=== PATIENT | female | born 1975 | race Caucasian/White ===

== ENCOUNTER 2018-06-28 09:46 | Outpatient (CLI) | payer OTHER ==
--- NOTE | 2018-06-28 10:50 | ULT ---
RIGHT UPPER QUADRANT ULTRASOUND: HISTORY: Right upper quadrant pain. FINDINGS: Real-time imaging of the right upper quadrant shows multiple echogenic foci with shadowing within the gallbladder consistent with gallstones. The gallbladder wall is not thickened. The common duct is 4 mm. The liver shows a somewhat heterogeneous coarse echotexture. It measures 20.5 cm in length. The right kidney is normal in size and not obstructed. The pancreas is partially obscured. IMPRESSION: 1. Somewhat heterogeneous liver echotexture. The liver appears borderline in size. 2. Multiple cholelithiasis with a normal-caliber common duct. POS: [facility]
== END 2018-06-28 09:47 | disposition home or self-care (01) ==
LOC: BICULT 09:46
PROVIDERS: ATTEND Internal Medicine
DX: R10.9 Unspecified abdominal pain (principal); K21.9 Gastro-esophageal reflux disease without esophagitis; R19.5 Other fecal abnormalities; K80.20 Calculus of gallbladder without cholecystitis without obstruction
CPT/HCPCS: 76705

== ENCOUNTER 2018-07-11 07:21 | Day surgery (SDC) | payer OTHER ==
[2018-07-10 11:08] VITALS: BMI 58.3
[2018-07-11] MEDS ORDERED: Ketamine 50 MG/ML (10ML VIAL) ONE (10:13)
[2018-07-11] MEDS ORDERED: Midazolam HCl 2 mg/2 ml Vial ONE (10:13)
--- NOTE | 2018-07-11 12:36 | OP ---
DATE OF PROCEDURE: 07/11/2018 PROCEDURE PERFORMED: Esophagogastroduodenoscopy with biopsy, colonoscopy with biopsy. INDICATION FOR PROCEDURE: Midepigastric/right upper quadrant abdominal pain, chronic diarrhea. DESCRIPTION OF PROCEDURE: After the risks and benefits of the procedures were explained to the patient including risks of bleeding, infection, perforation, reactions to anesthesia, aspiration, and/or pain, informed consent was obtained. The patient was then taken to the endoscopy suite, where deep sedation was administered via combination of ketamine and propofol due to the patient's large body habitus. Once adequate sedation was achieved, the standard gastroscope was introduced into the mouth with intubation of the esophagus, stomach, and the proximal small intestines with the findings listed below. The patient exhibited a small amount of emesis during this portion of the procedure with oxygen desaturation that responded promptly to removal of the scope and administration of oxygen via Venti mask. Upon stabilization of her oxygenation, the bed was then rotated to 180 degrees in preparation for the colonoscopy. After a digital rectal examination was performed, the standard colonoscope was introduced into the rectum and advanced to the terminal ileum without difficulty. The quality of the prep was good to excellent. The patient tolerated this portion of the procedure well with no immediate perioperative complications. Upon conclusion of the colonoscopy, all equipment was removed from the patient and the patient was transferred to Day Stay in satisfactory condition. EGD FINDINGS: Esophagus: Normal-appearing mucosa was seen in the proximal, mid , and distal esophagus. There was no evidence of erosions, ulcerations, mass, lesions, or active/recent bleeding. However, bile was seen refluxing from the stomach into the distal esophagus concerning for bile acid reflux. Stomach: Limited views were obtained of the stomach due to the patient's oxygen desaturation during the procedure, but the views were adequate. Of the mucosa visualized, normal-appearing mucosa was seen in the gastric cardia, fundus, body , and incisura; however, multiple gastric polyps measuring between 2 to 6 mm in size that were malhotra in coloration were seen in the distal gastric body and the antrum. A biopsy was taken from one of these polyps as a public service representative sample with further biopsies not being obtained due to the patient's oxygen desaturation. Otherwise, there was no evidence of erosions, ulcerations, mass, lesions, or active/recent bleeding. Duodenum: Normal-appearing mucosa was seen in both the duodenal bulb and second portion of the duodenum. There was no evidence of erosions, ulcerations, mass, lesions, or active/recent bleeding. IMPRESSION: 1. Multiple gastric polyps measuring between 3 to 6 mm in size, consistent with fundic gland polyps, status post biopsy to confirm diagnosis. 2. Otherwise, normal upper endoscopy with no etiology for her pain seen during this examination. 3. Acute oxygen desaturation prompting premature termination of this portion of the procedures. COLONOSCOPY FINDINGS: Digital rectal exam, normal. Colon findings: Normal-appearing mucosa was seen in the terminal ileum as well as at the ileocecal valve, appendiceal orifice, and within the cecum itself. A 3 mm polyp was seen in the mid ascending colon and completely removed with biopsy forceps. It was retrieved and placed in a specimen jar for evaluation. Otherwise, normal-appearing mucosa was seen in the distal ascending, transverse, descending , sigmoid colons. Multiple colonic biopsies were taken from these regions for evaluation of possible microscopic colitis. However, within the rectum at approximately 8 to 12 cm past the anal verge, there were multiple linear colonic erosions in a random opal-cross pattern scattered throughout the rectum. These erosions exhibited mild oozing of blood with small petechiae like clots forming above them. Multiple biopsies were taken from these erosions for evaluation. Otherwise, there were no abnormalities seen on rectal retroflexion. IMPRESSION: 1. 3 mm ascending colon polyp, status post biopsy forceps. 2. Multiple linear rectal erosions measuring 2 to 4 cm in length, status post biopsies. 3. No etiology for the patient's abdominal pain seen during this examination. RECOMMENDATIONS: 1. We will follow up on the biopsy results with further management based on the pathology report. 2. Would continue with current regimen for diarrhea including a higher fiber diet. 3. Would have the patient follow up in the GI clinic in 3 weeks for further management of her abdominal pain and diarrhea. Job ID: [id number] [facility]
== END 2018-07-11 15:25 | disposition home or self-care (01) ==
LOC: SDC 07:21
PROVIDERS: ATTEND Internal Medicine
PROC: 0DBK8ZX Excision of Ascending Colon, Via Natural or Artificial Opening Endoscopic, Diagnostic (ICD-10-PCS; principal; 2018-07-11)
PROC: 0DBP8ZX Excision of Rectum, Via Natural or Artificial Opening Endoscopic, Diagnostic (ICD-10-PCS; principal; 2018-07-11)
PROC: 0DB68ZX Excision of Stomach, Via Natural or Artificial Opening Endoscopic, Diagnostic (ICD-10-PCS; principal; 2018-07-11)
DX: D12.2 Benign neoplasm of ascending colon (principal); K29.50 Unspecified chronic gastritis without bleeding; K62.89 Other specified diseases of anus and rectum; K21.9 Gastro-esophageal reflux disease without esophagitis; I10 Essential (primary) hypertension; E11.9 Type 2 diabetes mellitus without complications; F41.9 Anxiety disorder, unspecified; F32.9 Major depressive disorder, single episode, unspecified; G47.30 Sleep apnea, unspecified; G43.909 Migraine, unspecified, not intractable, without status migrainosus; Z90.710 Acquired absence of both cervix and uterus; Z88.6 Allergy status to analgesic agent; Z88.5 Allergy status to narcotic agent; Z88.8 Allergy status to other drugs, medicaments and biological substances; Z88.0 Allergy status to penicillin; Z91.011 Allergy to milk products; Z79.899 Other long term (current) drug therapy; Z98.890 Other specified postprocedural states
CPT/HCPCS: 88305; 88312; J2250

== ENCOUNTER 2018-07-27 12:00 | Outpatient (CLI) | payer OTHER ==
[2018-07-27 15:01] LABS: #Basophils 0.1 thou/uL (0.0-0.2); #Eosinphils 0.4 thou/uL (0.0-0.7); #Lymphocytes 1.6 thou/uL (1.20-3.40); #Monocytes 0.4 thou/uL (0.11-0.59); #Neutrophils 5.6 thou/uL (1.40-6.50); %Basophils 0.7 % (0.0-1.0); %Eosinophils 4.8 % (0.0-10.0); %Lymphocytes 19.5 % (21.0-51.0); %Monocytes 4.6 % (0.0-10.0); %Neutrophils 70.3 % (42.0-75.0); Hemoglobin 12.6 g/dL (12.0-16.0); Mean Corpuscular HGB CONC 31.4 g/dL (32.0-36.0); Mean Corpuscular Hemoglobin 28.3 pg (27.0-31.0); Mean Corpuscular Volume 90.3 fL (78.0-98.0); Mean Platelet Volume 9.7 fL (7.4-10.4); Platelet Count 180 thou/uL (130-400); RBC Distribution Width 14.7 % (11.5-14.5); Red Blood Cell (RBC) Count 4.46 mill/uL (4.20-5.40)
[2018-07-27 15:34] LABS: ALT (SGPT) 10 U/L (8-55); AST (SGOT) 14 U/L (5-34); Albumin 4.1 g/dL (3.5-5.0); Alkaline Phosphatase 85 U/L (40-150); Anion Gap 12 mmol/L (10-20); BUN (Urea Nitrogen) 15 mg/dL (7.0-18.7); Bilirubin, Direct 0.1 mg/dL (0.1-0.3); Bilirubin, Total 0.3 mg/dL (0.2-1.2); Calc. Creatinine Clearance 0 mL/min (70-130); Calcium 9.7 mg/dL (7.8-10.44); Carbon Dioxide 30 mmol/L (22-29); Chloride 102 mmol/L (98-107); Estimated GFR-MDRD Greater than 90; Globulin 3.4 g/dL (2.4-3.5); Glucose 75 mg/dL (70-105); Potassium 3.9 mmol/L (3.5-5.1); Protein, Total 7.5 g/dL (6.0-8.3); Sodium 140 mmol/L (136-145)
== END 2018-07-27 12:01 | disposition home or self-care (01) ==
LOC: LABBT 12:00
PROVIDERS: ATTEND Surgery
DX: Z01.812 Encounter for preprocedural laboratory examination (principal); K80.20 Calculus of gallbladder without cholecystitis without obstruction
CPT/HCPCS: 80053; 80076; 85025

== ENCOUNTER 2018-07-31 08:44 | Inpatient (IN) | payer OTHER ==
[2018-07-27 12:21] VITALS: BMI 61.6
[2018-07-31] MEDS ORDERED: cefOXitin Sodium/Dextrose,Iso 2 GM in Premix Bag 1 BAG IVPB SCH (09:30)
[2018-07-31] MEDS ORDERED: Bupivacaine/Epinephrine 0.25% 30 ML VIAL ONE (09:35)
[2018-07-31] MEDS ORDERED: Fentanyl 100 MCG/2 ML VIAL ONE ×4 (09:43→13:31)
[2018-07-31] MEDS ORDERED: Midazolam HCl 2 mg/2 ml Vial ONE (09:57)
[2018-07-31] MEDS ORDERED: Albuterol Sulfate HFA (OR ONLY) ONE (11:13)
[2018-07-31] MEDS ORDERED: SUGAMMADEX SODIUM 500 MG/5 ML VIAL ONE (11:22)
--- NOTE | 2018-07-31 12:05 | OP ---
DATE OF PROCEDURE: 07/31/2018 PREOPERATIVE DIAGNOSES: Symptomatic cholelithiasis and morbid obesity. PROCEDURE PERFORMED: Laparoscopic cholecystectomy. INDICATIONS: A 43-year-old female, morbidly obese, who has been having episodic right upper quadrant pain radiating to back, associated with nausea, worse after eating. Ultrasound showed cholelithiasis. FINDINGS: She had a massive liver with a very prominent hepatomegaly. The gallbladder was fatty and cystic duct is not dilated. DESCRIPTION OF PROCEDURE: After informed consent was obtained, the patient was taken to the operating room, given general endotracheal anesthesia. She was placed in supine position. Her abdomen was prepped and draped in usual fashion. She had a previous midline incision and ventral hernia repair, so rather than going through the midline, started of with the right lateral abdomen. A 5 mm incision was performed and a Veress needle inserted. Drop test performed. Pneumoperitoneum was started and then the patient developed hypotension suddenly, so this insufflation was stopped and the patient resuscitated. She did fine and moved to a different location and again inserted the Veress needle, attempted insufflation, could not really, because of the weight of her abdominal wall, get any pressure in there, so I elected to advance the laparoscope under direct vision through the 5 mm trocar, entered the abdominal cavity and pneumoperitoneum was created to a pressure of 15 mmHg. Under direct vision, two other 5 mm ports were placed as well as a 12 mm port just in the epigastrium. The gallbladder was grasped and advanced superiorly. There was quite a bit of adipose on the gallbladder. The cystic duct, artery, and critical view were dissected out. Hemoclips were placed on the duct and artery divided and the gallbladder removed from its fossa utilizing electrocautery. The gallbladder was removed from the abdomen through the midline port site, sent to pathology for further analysis. Hemostasis achieved. Trocars and retractors removed after the fascia was closed with 0 Vicryl suture and the GraNee needle in the midline. The skin closed with interrupted 4-0 Rapide. Dermabond applied. The patient tolerated the procedure well, transferred to Recovery in good condition. Job ID: [id number]
[2018-07-31] MEDS ORDERED: PROVENTIL INHALER 6.7 G (200 INHALATIONS) ONE (15:17)
[2018-07-31] MEDS ORDERED: Lidocaine 1% PF 5 ML VIAL ONE (15:17)
[2018-07-31] MEDS ORDERED: ePHEDrine 50 MG/ML VIAL ONE (15:17)
[2018-07-31] MEDS ORDERED: Rocuronium Bromide 10 MG/ML (10ML VIAL) ONE (15:17)
[2018-07-31] MEDS ORDERED: Glycopyrrolate 0.2 MG/ML 5 ML SYRINGE ONE (15:17)
[2018-07-31] MEDS ORDERED: PHENYLEPHRINE-NS 100 MCG/ML 10 ML SYRINGE ONE (15:17)
[2018-07-31] MEDS ORDERED: Ondansetron PF 4 MG/2 ML Vial ONE (15:17)
[2018-07-31] MEDS ORDERED: Dexamethasone 20 MG/5 ML VIAL ONE (15:17)
[2018-07-31] MEDS ORDERED: PROPOFOL 200 MG/20 ML VIAL ONE (15:17)
[2018-07-31] MEDS ORDERED: HYDROcodone/Acetaminophen 5/325 mg Tablet PO PRN ×2 (15:18)
[2018-07-31] MEDS ORDERED: Ondansetron PF 4 MG/2 ML Vial IVP PRN (15:19)
[2018-07-31] MEDS ORDERED: Promethazine 25 MG TAB PO PRN (15:32)
[2018-07-31] MEDS ORDERED: Hydrocodone-Acetamin 15 ML UDCUP PO PRN (17:15)
[2018-07-31] MEDS: traMADol HCl 50 MG TAB PO SCH (19:56)
[2018-08-01] MEDS: Hydrocodone-Acetamin 15 ML UDCUP PO PRN ×4 (01:37→18:02)
[2018-08-01] MEDS: Furosemide 20 MG TAB PO SCH (08:35)
[2018-08-01] MEDS: traMADol HCl 50 MG TAB PO SCH ×3 (08:36→21:32)
[2018-08-01] MEDS: Dicyclomine 20 MG TAB PO SCH (08:38)
--- NOTE | 2018-08-01 09:07 | RAD ---
RADIOGRAPH CHEST 2 VIEWS: Date: 08/01/2018. Time: 8:18 a.m. HISTORY: A 43-year-old female with cough. COMPARISON: 06/14/2018. FINDINGS: Again noted is the dextroscoliosis of the thoracic spine. No cardiomegaly. New finding of blunting of the left lateral costophrenic angle and blunting of the left posterior costophrenic angle. Mild s treaky densities at the bilateral lung bases, left greater than right. New small focus of subsegment al atelectasis in the right upper lobe. No pneumothorax. IMPRESSION: 1. Evidence for new small left pleural effusion. 2. Nonspecific streaky densities in the bilateral lung bases, presumably subsegmental atelectasis. 3. Dextroscoliosis. 4. Recommend continued followup. LISA [] POS: [facility]
[2018-08-01] MEDS: Fluticasone Propionate Nasal Spray 16 gm Bottle NASAL SCH (11:56)
[2018-08-01] MEDS ORDERED: methylPREDNISolone Sod Succ/PF 125 MG/2 ML VIAL IVP SCH (12:15)
[2018-08-01] MEDS: Sodium Chloride 0.45% 1,000 ML IV SCH (13:07)
[2018-08-01] MEDS ORDERED: Sodium Chloride 0.9% 10 ML ONE (13:21)
[2018-08-01] MEDS ORDERED: Montelukast Sodium 10 mg Tablet PO SCH (21:00)
[2018-08-01] MEDS: guaiFENesin ER 600 MG TAB PO SCH (21:31)
--- NOTE | 2018-08-01 22:56 | CON ---
DATE OF CONSULTATION: HISTORY OF PRESENT ILLNESS: Flavia Weiss is a pleasant 43-year-old female who underwent cholecystectomy. She was noted to be hypoxic postoperatively. We were consulted. She says she went to sleep feeling fine, but woke up wheezing. She says she has had asthma since she was a little girl. It does not sound like she is on anything as a preventative drug and just uses albuterol around the house. She tells me she has been told she has chronic obstructive pulmonary disease, but she has never smoked. There is no family history of COPD at a young age. PAST MEDICAL HISTORY: Remarkable for 1. Reflux disease. 2. Allergic rhinitis. 3. Anxiety. 4. Depression. 5. Diabetes. 6. Hypertension. 7. Vascular headaches. 8. Sleep apnea. She is not wearing CPAP. Status post abdominal hysterectomy in 2013. 9. History of a herniorrhaphy, she says 11 different times. 10. History of . 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 She had ProAir. Zoloft 100 mg a day. Zantac, loratadine, lisinopril, and Lasix. ALLERGIES: SHE REPORTS ASPIRIN INTOLERANCE CARBAMAZEPINE, CODEINE, AND PENICILLIN. FAMILY HISTORY: Negative for lung disease in early age. REVIEW OF SYSTEMS: Otherwise negative except for shortness of breath when she moves around. PHYSICAL EXAMINATION: VITAL SIGNS: She is afebrile. Heart rates in 70s, blood pressure 124/60. Large cuff on her wrist. Respiratory rate is 22, oximetry is 94% on 3 L cannula. HEENT: Pupils are equal. Sclerae are anicteric. NECK: Supple. LUNGS: Remarkable for diffuse coarse wheezes. HEART: Regular rhythm. S1 and S2 are normal. ABDOMEN: Soft and nontender. EXTREMITIES: Without clubbing, cyanosis, or edema. IMPRESSION AND PLAN: Chronic persistent asthma with an exacerbation in perioperative period. I have added a dose of steroids today. We will continue nebulized treatments every 4 hours. We will add in Singulair at discharge. She says she had a sleep study done recently, but there is no record in [facility] of a recent sleep study. Without a doubt, she has probably very severe sleep apnea, which probably contributes to chronic hypoxemia with exercise and sleep. surprised if she did not have pulmonary hypertension to go with this. In any event, hopefully within a few days, we can get her feeling well enough to go home. It is a 70 minute consult, 50% of the time was spent in coordinating care. It was noted this evening that the patient was desaturating with exercise, this is not unexpected. We just need to turn up the oxygen when she is exercising. If she is allowed to sit postoperatively, she will never leave the hospital given her life-threatening obesity. Job ID: [id number]
[2018-08-02] MEDS: Hydrocodone-Acetamin 15 ML UDCUP PO PRN ×3 (00:47→09:53)
[2018-08-02] MEDS: Sodium Chloride 0.45% 1,000 ML IV SCH ×2 (00:48→16:20)
--- NOTE | 2018-08-02 09:38 | PRG ---
DATE OF SERVICE: 08/02/2018 SUBJECTIVE: The patient reports that she is still having trouble with her breathing and oxygenation. She says she feels like there is something in her chest that she cannot cough up. She is tolerating a regular diet. She is passing gas. Minimal nausea. OBJECTIVE: VITAL SIGNS: Temperature 98.4, pulse 63, and blood pressure 133/70. She is 95% saturation on 3.5 L of nasal cannula. GENERAL: She is awake and alert. ABDOMEN: Soft and morbidly obese. Incisions are healing well. There is no evidence of infection. : Good urine output. ASSESSMENT: Asthma/sleep apnea with hypoxia. PLAN: Continue current therapy per Pulmonary. When they feel comfortable with discharge, we will let her go home. Job ID: [id number]
[2018-08-02] MEDS: Dicyclomine 20 MG TAB PO SCH (09:48)
[2018-08-02] MEDS: traMADol HCl 50 MG TAB PO SCH ×2 (09:48→15:19)
[2018-08-02] MEDS: Furosemide 20 MG TAB PO SCH (09:49)
[2018-08-02] MEDS: Fluticasone Propionate Nasal Spray 16 gm Bottle NASAL SCH (09:49)
[2018-08-02] MEDS: guaiFENesin ER 600 MG TAB PO SCH (09:49)
[2018-08-02 12:09] VITALS: BP 121/58; TEMP 97.6
--- NOTE | 2018-08-02 16:32 | PRG ---
DATE OF SERVICE: 08/02/2018 SUBJECTIVE: Ms. Weiss is much better today. OBJECTIVE: VITAL SIGNS: Oximetry, sitting in a chair beside the bed this afternoon is 95% on room air. She is afebrile, heart rate 70, respiratory rate 20, and blood pressure 121/58 at noon. LUNGS: Completely clear now. HEART: Regular rhythm. ABDOMEN: Soft. IMPRESSION AND PLAN: 1. Mild asthma exacerbation in the perioperative period after cholecystectomy. 2. Life-threatening obesity. 3. Deconditioning. 4. Sleep apnea, suspect. I have recommended that she follow up with me in 2 weeks. I have given her prescription for prednisone 40 mg for 4 days, 20 mg for 6 days, and 10 mg for 8 days. I have written her prescription for DuoNeb to use 4 times a day. I have placed her on Singulair 10 mg a day. I have asked her to be compliant with the above medications until she sees me in 2 to 3 weeks. My phone number is on the prescription, which will be given to her. I have discussed the above with Dr. Carolina. Her hypoxemia is resolved, which is secondary to a combination of asthma, mucus plugging in perioperative atelectasis. I doubt she has had a thromboembolic event given her exam findings of bronchospasm, long history of asthma, and dramatic improvement with steroids and nebulizer treatments. Job ID: [id number]
--- NOTE | 2018-08-02 23:48 | DIS ---
DATE OF ADMISSION: 08/02/2018 DATE OF DISCHARGE: 08/02/2018 DISCHARGE DIAGNOSES: Symptomatic cholelithiasis, morbid obesity, asthma, probable sleep apnea. PROCEDURES DURING ADMISSION: Laparoscopic cholecystectomy. HOSPITAL COURSE: The patient was admitted, taken to the operating room where she underwent laparoscopic cholecystectomy. Postoperatively, she had quite a bit of bronchospasm, required admission. Sats remained somewhat low. Chest x-ray showed some atelectasis. Pulmonary was consulted, felt it was sleep apnea and asthma. She was treated with steroids and bronchodilators. She is no longer hypoxic. She is tolerating a regular diet. Pain is controlled on p.o. medications. She is discharged home on hydrocodone and Zofran. She will follow up with me in 2 weeks. Job ID: [id number]
== END 2018-08-02 19:10 | disposition home or self-care (01) | DRG 418 ==
LOC: SDC 08:44 → 3SW 13:45 → OBSVTOIN 08-02 09:07
PROVIDERS: ADMIT Surgery; ATTEND Surgery
PROC: 0FT44ZZ Resection of Gallbladder, Percutaneous Endoscopic Approach (ICD-10-PCS; principal; 2018-07-31)
DX: K80.20 Calculus of gallbladder without cholecystitis without obstruction (principal); J45.901 Unspecified asthma with (acute) exacerbation; J98.11 Atelectasis; Z68.44 Body mass index [BMI] 60.0-69.9, adult; E66.01 Morbid (severe) obesity due to excess calories; G47.30 Sleep apnea, unspecified; R53.81 Other malaise
CPT/HCPCS: 71046; 88304; 94640; J0131; J1100; J2001; J2250; J2405; J2704; J2930; J3010; J3490; J7620

== ENCOUNTER 2018-08-05 21:42 | Emergency (ER) | payer OTHER ==
[2018-08-05 22:57] LABS: #Basophils 0.1 thou/uL (0.0-0.2); #Eosinphils 0.1 thou/uL (0.0-0.7); #Lymphocytes 0.8 thou/uL (1.20-3.40); #Monocytes 0.3 thou/uL (0.11-0.59); #Neutrophils 11.8 thou/uL (1.40-6.50); %Basophils 0.9 % (0.0-1.0); %Eosinophils 0.4 % (0.0-10.0); %Lymphocytes 6.4 % (21.0-51.0); %Monocytes 2.5 % (0.0-10.0); %Neutrophils 89.9 % (42.0-75.0); Hemoglobin 12.2 g/dL (12.0-16.0); Mean Corpuscular HGB CONC 30.7 g/dL (32.0-36.0); Mean Corpuscular Hemoglobin 27.1 pg (27.0-31.0); Mean Corpuscular Volume 88.2 fL (78.0-98.0); Mean Platelet Volume 9.7 fL (7.4-10.4); Platelet Count 215 thou/uL (130-400); RBC Distribution Width 14.6 % (11.5-14.5); Red Blood Cell (RBC) Count 4.51 mill/uL (4.20-5.40); White Blood Cell (WBC) Count 13.1 thou/uL (4.8-10.8)
[2018-08-05 23:03] LABS: Bilirubin Negative (Negative); Blood, Urine Negative (Negative); Clarity CLEAR (Clear); Glucose, Urine (Dipstick) Negative (Negative); Leukocyte Negative (Negative); Nitrite Negative (Negative); Protein, Urine (Dipstick) Negative (Neg-Trace); Specific Gravity, Urine 1.018 (1.002-1.036); Urobilinogen 0.2 mg/dL (0.2-1.0); pH, Urine 5.5 (5.0-9.0)
[2018-08-05 23:21] LABS: ALT (SGPT) 41 U/L (8-55); AST (SGOT) 20 U/L (5-34); Albumin 3.9 g/dL (3.5-5.0); Alkaline Phosphatase 87 U/L (40-150); Anion Gap 15 mmol/L (10-20); BUN (Urea Nitrogen) 21 mg/dL (7.0-18.7); Bilirubin, Total Less than 0.2 mg/dL (0.2-1.2); Calc. Creatinine Clearance 0 mL/min (70-130); Calcium 9.3 mg/dL (7.8-10.44); Carbon Dioxide 29 mmol/L (22-29); Chloride 100 mmol/L (98-107); Estimated GFR-MDRD 79; Globulin 3.1 g/dL (2.4-3.5); Glucose 157 mg/dL (70-105); Lipase 24 U/L (8-78); Potassium 4.7 mmol/L (3.5-5.1); Sodium 139 mmol/L (136-145)
[2018-08-05 23:23] LABS: Pregnancy Test - Urine (BHCG) Negative (Negative); Pregu Control Background? CLEAR/WHITE (CLR/WHITE); Pregu Control Bar Appear? YES (CONTROL BAR); Specific Gravity 1.018 (1.002-1.036)
--- NOTE | 2018-08-05 23:39 | RAD ---
CHEST TWO VIEWS: 08/05/18 INDICATION: Cough. COMPARISON: Prior exam dated 08/01/18. FINDINGS: No consolidation, pleural effusion or pneumothorax is evident. Scoliosis is stable. Heart size is wit hin normal limits. No acute osseous abnormality is evident. IMPRESSION: No acute abnormality. POS: [facility]
[2018-08-06] MEDS ORDERED: Morphine 4 MG/ML VIAL ONE (03:26)
[2018-08-06] MEDS ORDERED: Ondansetron PF 4 MG/2 ML Vial ONE (04:56)
--- NOTE | 2018-08-06 08:47 | CT ---
FINAL REPORT EMERGENT AFTER HOURS CTA OF THE CHEST WITH CONTRAST: COMPARISON: None. TECHNIQUE: Multiple contiguous axial images were obtained in a CTA of the chest with contrast per pulmonary embo lism protocol. Three-D oblique MIP reformats and direct coronal reformats were performed. FINDINGS/IMPRESSION: I agree with the findings and impression given in the preliminary report per [facility] physician. No eric dence of pulmonary thromboembolism. POS: [facility]
--- NOTE | 2018-08-06 11:25 | CT ---
PRELIMINARY REPORT/[facility]/EMERGENCY AFTER HOURS PROCEDURE: EXAM: CT Abdomen and Pelvis With Contrast EXAM DATE/TIME: 08/06/2018 4:03 AM CLINICAL HISTORY: 43 years old, female; Pain; Abdominal pain; Generalized; Prior surgery; Patient HX: Er 4; F41 present s ed for abd pain. PT reports complaint began last night and got worse today. PT reports pain happens everytime she eats with sweating and chills. PT reports she was discharged on the august 02 for cholecystectomy on the . PT reports pain originates in middle of abd and moving to suprapu bic region then ruq. PT reports HX of 11 hernias with surgery for them in 2014. Surgical history of h ysterectomy, ileostomy, umbilical hernia with mesh, appendectomy, cholecystectomy. TECHNIQUE: Axial computed tomography images of the abdomen and pelvis with intravenous contrast. Coronal reforma tted images were created and reviewed. COMPARISON: No relevant prior studies available. FINDINGS: Lower thorax: There is linear atelectasis at LEFT lung base. ABDOMEN: Liver: There is focal hypoattenuation within the inferior tip of the RIGHT liver which cannot be furt her characterized on current exam but probably represents a benign cyst. May consider further evaluat ion in high risk patients. Gallbladder and bile ducts: There has been a cholecystectomy. Pancreas: The pancreas appears normal. No ductal dilatation. Spleen: The spleen is normal. Adrenals: The adrenal glands are normal. Kidneys and ureters: The kidneys appear normal. No hydronephrosis. Stomach and bowel: The stomach is normal. The duodenum is unremarkable. The colon is normal. Appendix: No evidence of appendicitis. PELVIS: Bladder: The bladder is normal. Reproductive: The uterus is present although may be partially absent. ABDOMEN and PELVIS: Intraperitoneal space: Normal. No free air. No significant fluid collection. Bones/joints: No acute fracture. No dislocation. Soft tissues: Patient is post ventral abdominal surgery with surgical mesh demonstrated in the pelvis . Vasculature: Normal. No abdominal aortic aneurysm. Lymph nodes: Normal. No enlarged lymph nodes. IMPRESSION: No acute abdominal pelvic pathology. Abdominal surgical changes as above. Thank you for allowing us to participate in the care of your patient. Dictated and Authenticated by: Rui Lopez MD 08/06/2018 4:31 AM Central Time ([place] & [place]) FINAL REPORT EMERGENT AFTER HOURS CT OF THE ABDOMEN AND PELVIS WITH CONTRAST: COMPARISON: 06/07/2018. FINDINGS/IMPRESSION: I agree with the findings and impression given in the preliminary report per [facility] physician. No eric dence of acute intraabdominal/pelvic abnormality. POS: [facility]
[2018-08-06] MEDS ORDERED: ISOVUE-370 76%-LOCM 1 ML ONE (13:09)
== END 2018-08-06 05:22 | disposition home or self-care (01) ==
LOC: ERS 21:42
DX: G89.18 Other acute postprocedural pain (principal); R10.33 Periumbilical pain; E11.9 Type 2 diabetes mellitus without complications; I10 Essential (primary) hypertension; E66.9 Obesity, unspecified; J45.909 Unspecified asthma, uncomplicated; F31.9 Bipolar disorder, unspecified; Z79.899 Other long term (current) drug therapy; Z79.51 Long term (current) use of inhaled steroids
CPT/HCPCS: 36415; 71046; 71275; 74177; 80053; 81003; 81025; 83690; 84484; 85025; 85379; 93005; 96361; 96374; 96375; J2270; J2405; Q9966

== ENCOUNTER 2018-08-16 11:04 | Outpatient (CLI) | payer OTHER ==
--- NOTE | 2018-08-16 11:40 | RAD ---
TWO VIEW CHEST: Indication: Dyspnea. FINDINGS: There is dextroscoliosis with elevation of the right hemidiaphragm. Cardiac silhouette is accentuated . No lobar consolidation, significant effusion or discrete pneumothorax. IMPRESSION: No focal consolidation. POS: [facility]
== END 2018-08-16 11:05 | disposition home or self-care (01) ==
LOC: RAD 11:04
PROVIDERS: ATTEND Internal Medicine Critical Care Medicine
DX: R06.00 Dyspnea, unspecified (principal)
CPT/HCPCS: 71046

== ENCOUNTER 2018-08-23 11:14 | Outpatient (CLI) | payer OTHER ==
--- NOTE | 2018-08-23 11:33 | ULT ---
FUltrasound abdomen limited: (Right upper quadrant) 08/23/2018 HISTORY: 43-year-old female with right upper quadrant abdominal pain. FINDINGS: Hepatic echogenicity within normal limits. At least mild hepatomegaly. No hydronephrosis of right kidney. Common duct caliber 3 or 4 mm. Pancreas: Nonspecific sonographic appearance. Gallbladder: Surgically absent. IMPRESSION: 1. Hepatomegaly. 2. Status post cholecystectomy.
== END 2018-08-23 11:15 | disposition home or self-care (01) ==
LOC: SCSULT 11:14
PROVIDERS: ATTEND Surgery
DX: R10.11 Right upper quadrant pain (principal); R16.0 Hepatomegaly, not elsewhere classified; Z90.49 Acquired absence of other specified parts of digestive tract
CPT/HCPCS: 76705

== ENCOUNTER 2018-09-11 19:30 | Outpatient (CLI) | payer OTHER | END 2018-09-11 19:31 | disposition home or self-care (01) | LOC: SLEEPLAB 19:30 | PROVIDERS: ATTEND Internal Medicine Critical Care Medicine | DX: G47.33 Obstructive sleep apnea (adult) (pediatric) (principal); G47.00 Insomnia, unspecified; G47.10 Hypersomnia, unspecified; J45.909 Unspecified asthma, uncomplicated; R06.83 Snoring; I10 Essential (primary) hypertension; E66.9 Obesity, unspecified; Z68.44 Body mass index [BMI] 60.0-69.9, adult | CPT/HCPCS: 95811 ==

== ENCOUNTER 2018-10-04 09:55 | Outpatient (CLI) | payer OTHER ==
--- NOTE | 2018-10-04 11:08 | RAD ---
CHEST TWO VIEWS: 10/04/2018 PROVIDED CLINICAL HISTORY: Dyspnea. COMPARISON: 09/15/2018 FINDINGS: Evaluation is limited by patient body habitus. Right convexity curvature of the thoracic spine is re demonstrated. The cardiac and mediastinal silhouette is unchanged in appearance. No focal consolida tion, pleural fluid, or pneumothorax is apparent. IMPRESSION: No evidence for an acute cardiopulmonary process. POS: [facility]
== END 2018-10-04 09:56 | disposition home or self-care (01) ==
LOC: RAD 09:55
PROVIDERS: ATTEND Internal Medicine Critical Care Medicine
DX: R06.00 Dyspnea, unspecified (principal)
CPT/HCPCS: 71046

== ENCOUNTER 2018-10-18 13:06 | Outpatient (CLI) | payer OTHER | END 2018-10-18 13:07 | disposition home or self-care (01) | LOC: DTY/OP 13:06 | PROVIDERS: ATTEND Surgery | DX: E66.01 Morbid (severe) obesity due to excess calories (principal) | CPT/HCPCS: 97802 ==

== ENCOUNTER 2018-12-07 17:34 | Emergency (ER) | payer OTHER ==
[2018-12-07] MEDS ORDERED: Morphine 4 MG/ML VIAL ONE (18:15)
--- NOTE | 2018-12-07 19:00 | RAD ---
SINGLE VIEW OF THE PELVIS: 12/07/18 COMPARISON: None. HISTORY: Left sided pain and right hip pain. Trauma. FINDINGS: Single view of the pelvis shows no evidence of acute fracture or dislocation. No degenerative changes are seen in either hip. Multiple laparoscopic isai are seen in the left inguinal region. IMPRESSION: No evidence of acute osseous abnormality. POS: [facility]
[2018-12-07] MEDS ORDERED: Ketorolac Tromethamine 30 MG/ML VIAL ONE (19:02)
[2018-12-07] MEDS ORDERED: Ondansetron PF 4 MG/2 ML Vial ONE (19:02)
--- NOTE | 2018-12-07 19:09 | CT ---
CT OF THE BRAIN WITHOUT CONTRAST: 12/07/18 COMPARISON: 09/15/18. HISTORY: Headache. TECHNIQUE: Multiple contiguous axial images were obtained in a CT of the brain without contrast. FINDINGS: The brain is normal in morphology and attenuation without focal lesions or confluent areas of infarct ion. There is no evidence of hydrocephalus, intracranial hemorrhage or extra-axial fluid collection. The calvarium and overlying soft tissues are unremarkable. The visualized paranasal sinuses and mast oid air cells are well aerated. IMPRESSION: No evidence of acute intracranial abnormality. POS: C
--- NOTE | 2018-12-07 19:12 | CT ---
CT OF THE CERVICAL SPINE WITHOUT CONTRAST: 12/07/18 COMPARISON: None. HISTORY: Headache and neck pain after tripping on a wire doing yard work. TECHNIQUE: Multiple contiguous axial images were obtained in a CT of the cervical spine without contrast. Sagi ttal and coronal reformats were performed. FINDINGS: The vertebral bodies and intervertebral discs demonstrate normal height and alignment without fractur e or subluxation. No degenerative changes are seen. No prevertebral soft tissue swelling is seen. The posterior facets are well aligned. Normal alignment of the skull base with the cervical spine is seen. Please note that this exam is limited secondary to streak artifact from the patient's large size. IMPRESSION: No evidence of acute osseous abnormality of the cervical spine. POS: C
--- NOTE | 2018-12-07 19:16 | CT ---
CT LUMBAR SPINE WITH CORONAL AND SAGITTAL REFORMATIONS AND NO IV CONTRAST: 12/07/18 HISTORY: Trauma, back pain. FINDINGS: Multilevel degenerative changes are present. No acute fracture or subluxation is identified. There ar e bilateral pars articularis defects at L5 level. There is vacuum disc phenomenon at L1-2 level. IMPRESSION: No CT evidence of fracture or traumatic subluxation. POS: [facility]
== END 2018-12-07 20:10 | disposition home or self-care (01) ==
LOC: ERS 17:34
DX: M54.5 Low back pain (principal); M54.2 Cervicalgia; R51 Headache; M25.512 Pain in left shoulder; M25.551 Pain in right hip; E11.9 Type 2 diabetes mellitus without complications; I10 Essential (primary) hypertension; E66.9 Obesity, unspecified; J45.909 Unspecified asthma, uncomplicated; G47.30 Sleep apnea, unspecified; F31.9 Bipolar disorder, unspecified; Z79.899 Other long term (current) drug therapy; Z79.51 Long term (current) use of inhaled steroids; W18.30XA Fall on same level, unspecified, initial encounter
CPT/HCPCS: 70450; 72125; 72131; 72170; 96374; 96375; J1885; J2270; J2405

== ENCOUNTER 2019-01-14 16:14 | Emergency (ER) | payer OTHER ==
[2019-01-14] MEDS ORDERED: Lidocaine Viscous Sol 2% 15 ml UD Cup ONE (16:51)
== END 2019-01-14 17:45 | disposition home or self-care (01) ==
LOC: ERS 16:14
DX: T16.2XXA Foreign body in left ear, initial encounter (principal); H60.92 Unspecified otitis externa, left ear; I10 Essential (primary) hypertension; J45.909 Unspecified asthma, uncomplicated; F41.9 Anxiety disorder, unspecified; F32.9 Major depressive disorder, single episode, unspecified; Z79.899 Other long term (current) drug therapy; Z79.51 Long term (current) use of inhaled steroids
CPT/HCPCS: 99282

== ENCOUNTER 2019-02-06 13:27 | Outpatient (CLI) | payer OTHER ==
--- NOTE | 2019-02-06 14:25 | MMO ---
Bilateral MAMMO Bilat Screen DDI. CLINICAL HISTORY: Patient is 43 years old and is seen for screening. The patient has the following family history of breast cancer: mother, at age 32, malignant (generic), ovarian and paternal grandmother, malignant (generic). The patient has a history of cervical cancer at age 24. VIEWS: The views performed were: bilateral craniocaudal and bilateral mediolateral oblique. This study has been interpreted with the assistance of computer-aided detection. MAMMOGRAM FINDINGS: There are scattered fibroglandular densities. There are benign appearing calcifications seen in both breasts. There are no suspicious masses, suspicious calcifications, or new areas of architectural distortion. IMPRESSION: THERE IS NO MAMMOGRAPHIC EVIDENCE OF MALIGNANCY. A ROUTINE FOLLOW-UP MAMMOGRAM IN 1 YEAR IS RECOMMENDED. ACR BI-RADS Category 2 - Benign finding MAMMOGRAPHY NOTE: 1. A negative mammogram report should not delay a biopsy if a dominant of clinically suspicious mass is present. 2. Approximately 10% to 15% of breast cancers are not detected by mammography. 3. Adenosis and dense breasts may obscure an underlying neoplasm. Reported by: CARIDAD RIGGS MD Electonically Signed: [id number]
== END 2019-02-06 13:28 | disposition home or self-care (01) ==
LOC: BICMAMMO 13:27
PROVIDERS: ATTEND Family Medicine
DX: Z12.31 Encounter for screening mammogram for malignant neoplasm of breast (principal); Z85.41 Personal history of malignant neoplasm of cervix uteri; Z80.3 Family history of malignant neoplasm of breast; Z80.41 Family history of malignant neoplasm of ovary
CPT/HCPCS: 77067

== ENCOUNTER 2019-05-28 05:59 | Outpatient (CLI) | payer OTHER ==
--- NOTE | 2019-05-28 13:49 | RAD ---
PA AND LATERAL VIEWS CHEST: HISTORY: Preoperative evaluation. FINDINGS: Comparison is made with the exam of 03/21/2019. The heart size is borderline but stable. The lungs are expanded without focal areas of consolidation , pneumothoraces, or pleural effusions. There is scoliosis of the spine. IMPRESSION: No radiographic evidence of acute cardiopulmonary process. POS: [facility]
[2019-05-28 14:08] LABS: #Eosinphils 0.2 thou/uL (0.0-0.7); #Lymphocytes 1.4 thou/uL (1.20-3.40); #Monocytes 0.4 thou/uL (0.11-0.59); #Neutrophils 6.5 thou/uL (1.40-6.50); %Basophils 0.4 % (0.0-1.0); %Eosinophils 2.6 % (0.0-10.0); %Lymphocytes 16.1 % (21.0-51.0); Mean Corpuscular HGB CONC 32.5 g/dL (32.0-36.0); Mean Corpuscular Hemoglobin 28.7 pg (27.0-31.0); Mean Corpuscular Volume 88.4 fL (78.0-98.0); Mean Platelet Volume 9.7 fL (7.4-10.4); Platelet Count 190 thou/uL (130-400); RBC Distribution Width 13.3 % (11.5-14.5); Red Blood Cell (RBC) Count 4.87 mill/uL (4.20-5.40); White Blood Cell (WBC) Count 8.5 thou/uL (4.8-10.8)
[2019-05-28 14:16] LABS: Hemoglobin A1c 5.5 % (4.0-6.0)
[2019-05-28 14:35] LABS: ALT (SGPT) 26 U/L (8-55); AST (SGOT) 24 U/L (5-34); Albumin 4.3 g/dL (3.5-5.0); Alkaline Phosphatase 92 U/L (40-110); Anion Gap 15 mmol/L (10-20); BUN (Urea Nitrogen) 23 mg/dL (7.0-18.7); Bilirubin, Total Less than 0.2 mg/dL (0.2-1.2); Calc. Creatinine Clearance 0 mL/min (70-130); Calcium 9.6 mg/dL (7.8-10.44); Carbon Dioxide 28 mmol/L (22-29); Chloride 103 mmol/L (98-107); Estimated GFR-MDRD Greater than 90; Globulin 3.4 g/dL (2.4-3.5); Glucose 106 mg/dL (70-105); Potassium 3.7 mmol/L (3.5-5.1); Protein, Total 7.7 g/dL (6.0-8.3); Sodium 142 mmol/L (136-145)
--- NOTE | 2019-05-28 17:12 | EKG ---
Test Reason : Blood Pressure : / mmHG Vent. Rate : 064 BPM Atrial Rate : 064 BPM P-R Int : 154 ms QRS Dur : 088 ms QT Int : 420 ms P-R-T Axes : 036 071 -11 degrees QTc Int : 433 ms Normal sinus rhythm Nonspecific ST-T changes cannot R/O ant/septal infarct Abnormal ECG When compared with ECG of 06-AUG-2018 00:39, Nonspecific T wave abnormality now evident in Anterolateral leads Confirmed by DR. Sienna GAMBOA (3) on 05/28/2019 5:12:07 PM Referred By: JJ Confirmed By:DR. Sienna GAMBOA
== END 2019-05-28 06:00 | disposition home or self-care (01) ==
LOC: LABBT 05:59
PROVIDERS: ATTEND Surgery
DX: Z01.818 Encounter for other preprocedural examination (principal); E66.01 Morbid (severe) obesity due to excess calories
CPT/HCPCS: 71046; 80053; 83036; 85025; 93005; 93010

== ENCOUNTER 2019-05-28 13:15 | Inpatient (IN) | payer OTHER ==
[2019-06-04] MEDS ORDERED: Fentanyl 100 MCG/2 ML VIAL ONE ×3 (08:45→12:40)
[2019-06-04] MEDS ORDERED: Bupivacaine 0.25% HCL 30 ML VIAL ONE ×2 (08:59→09:00)
[2019-06-04] MEDS ORDERED: Lidocaine 1% w/Epinephrine 1:100K 20 ML VIAL ONE ×2 (08:59→09:00)
[2019-06-04] MEDS ORDERED: Heparin 5,000 UNITS/ML VIAL ONE (09:08)
[2019-06-04] MEDS ORDERED: Scopolamine 1.5 mg/72 hour Patch ONE (09:08)
[2019-06-04] MEDS ORDERED: Levofloxacin 500 mg/D5W 100 ml Premix Bag ONE (09:08)
[2019-06-04] MEDS ORDERED: Glycopyrrolate 0.2 MG/ML 5 ML SYRINGE ONE (10:14)
[2019-06-04] MEDS ORDERED: diphenhydrAMINE 50 MG/ML VIAL ONE (10:14)
[2019-06-04] MEDS ORDERED: Rocuronium Bromide 10 MG/ML (10ML VIAL) ONE (10:14)
[2019-06-04] MEDS ORDERED: PROPOFOL 200 MG/20 ML VIAL ONE (10:14)
[2019-06-04] MEDS ORDERED: Ondansetron PF 4 MG/2 ML Vial ONE (10:14)
[2019-06-04] MEDS ORDERED: Dexamethasone 20 MG/5 ML VIAL ONE (10:14)
[2019-06-04] MEDS ORDERED: Succinylcholine Chloride 20 MG/ML 10 ml SYRINGE FS ONE (10:14)
[2019-06-04] MEDS ORDERED: Promethazine HCl 25 MG/ML VIAL IM PRN (11:01)
[2019-06-04] MEDS ORDERED: Dextrose 5% in Water 1,000 ML IV PRN (11:01)
[2019-06-04] MEDS ORDERED: hydrALAZINE 20 MG/ML VIAL SLOW IVP PRN (11:01)
[2019-06-04] MEDS ORDERED: Dextrose 50% Abboject 50 ML SYRINGE SLOW IVP PRN (11:01)
[2019-06-04] MEDS ORDERED: diphenhydrAMINE 50 MG/ML VIAL IVP PRN ×2 (11:01→11:30)
[2019-06-04] MEDS ORDERED: SUGAMMADEX SODIUM 200 MG/2 ML VIAL ONE (11:10)
[2019-06-04] MEDS ORDERED: Ketorolac Tromethamine 30 MG/ML VIAL ONE (11:27)
[2019-06-04] MEDS ORDERED: diphenhydrAMINE 25 MG CAP PO PRN (11:30)
[2019-06-04] MEDS ORDERED: diphenhydrAMINE 50 MG/ML VIAL IM PRN (11:30)
[2019-06-04] MEDS ORDERED: Meperidine HCl/PF 25 MG/ML VIAL SLOW IVP PRN (11:30)
[2019-06-04] MEDS ORDERED: Communication Order-Pharmacy FS PRN (11:30)
[2019-06-04] MEDS ORDERED: fentaNYL Citrate/PF 2,000 MCG in Sodium Chloride 0.9% 60 ML IV PRN (11:30)
[2019-06-04] MEDS ORDERED: Ondansetron HCl/PF 4 MG/2 ML Vial IVP PRN (11:30)
[2019-06-04] MEDS ORDERED: Naloxone HCl 0.4 mg/ml Vial IV PRN (11:30)
[2019-06-04] MEDS ORDERED: Ketorolac Tromethamine 30 MG/ML VIAL IVP PRN (11:30)
[2019-06-04] MEDS ORDERED: Promethazine HCl 25 MG/ML VIAL ONE (12:12)
[2019-06-04] MEDS ORDERED: D5 1/2 NS w/20 mEq KCL 1,000 ML ONE (13:38)
[2019-06-04 14:58] VITALS: BMI 68.2
[2019-06-04] MEDS: Ketorolac Tromethamine 30 MG/ML VIAL IVP SCH ×3 (15:01→23:56)
[2019-06-04] MEDS: Ondansetron PF 4 MG/2 ML Vial IVP PRN (15:17)
--- NOTE | 2019-06-04 15:17 | OP ---
DATE OF PROCEDURE: 06/04/2019 PREOPERATIVE DIAGNOSIS: Morbid obesity. PROCEDURE PERFORMED: Laparoscopic sleeve gastrectomy, esophagogastroscopy. INDICATIONS: A 44-year-old female, morbidly obese, who has attempted multiple weight loss programs without success. FINDINGS: A 38-Gabonese bougie used. DESCRIPTION OF PROCEDURE: After informed consent was obtained, the patient was taken to the operating room and given general endotracheal anesthesia. She was placed in the supine position. Her abdomen was prepped and draped in usual fashion. Local anesthesia was infiltrated subcutaneously and deep and a 12-mm incision was performed approximately 8 inches below the xiphoid slightly to the left. Veress needle was inserted. Drop test was performed. Pneumoperitoneum was created to a volume of 2 L of carbon dioxide. Utilizing a bladeless 12-mm trocar and 0-degree laparoscope, direct visual entry into the abdominal cavity was performed. Pneumoperitoneum was created to a pressure of 15 mmHg and the patient placed in steep reverse Trendelenburg position. Ariel liver retractor inserted. Left lobe of liver retracted superiorly. The pylorus was identified. A 12-mm port placed on the right beneath it and two 12s were placed on the left subcostal. The omentum was taken off the greater curvature 5 cm from the pylorus utilizing the LigaSure. Short gastrics were divided with LigaSure and left crura defined with LigaSure. A 38-Gabonese bougie inserted, directed into the antrum. The linear 60 mm green load stapler used to divide the antrum to the bougie, gold load along the bougie, and a series of blues through the angle of His. Intraoperative endoscopy was performed. The video endoscope was inserted under direct vision and advanced into the sleeve. The staple line inspected. There was no bleeding. Staple line then tested by inflating the new stomach with pressurized air under water. There was no air leak. Stomach was decompressed. Scope was removed. The remnant stomach was removed from the abdomen through the left lateral port site. The fascia was closed with 0 Vicryl suture and the GraNee needle. Trocars and retractors removed. The skin was closed with interrupted 4-0 Rapide. Dermabond applied. The patient tolerated the procedure well, transferred to Recovery in good condition. Sponge and needle count verified correct x2. Job ID: [id number]
[2019-06-04] MEDS: D5 1/2 NS w/20 mEq KCL 1,000 ML IV SCH ×2 (15:21→21:13)
[2019-06-05] MEDS: D5 1/2 NS w/20 mEq KCL 1,000 ML IV SCH ×3 (03:38→20:19)
[2019-06-05] MEDS: Ketorolac Tromethamine 30 MG/ML VIAL IVP SCH ×3 (05:16→19:07)
[2019-06-05 05:18] LABS: #Lymphocytes 0.5 thou/uL (1.20-3.40); #Monocytes 0.4 thou/uL (0.11-0.59); #Neutrophils 6.7 thou/uL (1.40-6.50); %Basophils 0.5 % (0.0-1.0); %Eosinophils 0.1 % (0.0-10.0); %Lymphocytes 7.1 % (21.0-51.0); %Monocytes 5.7 % (0.0-10.0); %Neutrophils 86.7 % (42.0-75.0); Hemoglobin 12.3 g/dL (12.0-16.0); Mean Corpuscular Hemoglobin 29.2 pg (27.0-31.0); Mean Corpuscular Volume 88.6 fL (78.0-98.0); Platelet Count 161 thou/uL (130-400); RBC Distribution Width 13.1 % (11.5-14.5); Red Blood Cell (RBC) Count 4.21 mill/uL (4.20-5.40); White Blood Cell (WBC) Count 7.7 thou/uL (4.8-10.8)
[2019-06-05 05:41] LABS: Anion Gap 13 mmol/L (10-20); BUN (Urea Nitrogen) 11 mg/dL (7.0-18.7); Calc. Creatinine Clearance 258 mL/min (70-130); Calcium 8.6 mg/dL (7.8-10.44); Carbon Dioxide 25 mmol/L (22-29); Chloride 105 mmol/L (98-107); Estimated GFR-MDRD Greater than 90; Glucose 128 mg/dL (70-105); Potassium 3.8 mmol/L (3.5-5.1); Sodium 139 mmol/L (136-145)
--- NOTE | 2019-06-05 07:38 | PDOC.GSPN ---
Surgery Progress Note: Subj - Subjective Narrative: Ms. Weiss is a 44 F POD#1 following laparoscopic sleeve gastrectomy. She slept well last night and is doing fine this AM. She notes some pain mainly on her left side which is well controlled with pain medication. She has been using her FUEL MANAGER pump. She is currently on 3 L NC but denies difficulty breathing. She is currently NPO and is awaiting her gastrograffin study this morning. She has not yet had a BM and denies passing gas. She has been ambulating to the restroom on her own and has been voiding without difficulty. She denies chest pain, fever. Surgery Progress Note: Obj - Vital signs Vital signs: Vital Signs - Most Recent Temp Pulse Resp BP Pulse Ox 98.7 F 67 16 111/63 93 L 06/05/19 03:12 06/05/19 03:12 06/05/19 03:12 06/05/19 03:12 06/05/19 03:12 - Physical Exam General: no distress Cardiovascular: regular rate and rhythm Respiratory: clear to auscultation Abdomen: soft, nondistended, positive bowel sounds, appropriately tender Wound: healing well Surgery Progress Note: Results - Labs Result Diagrams: 06/05/19 04:33 06/05/19 04:33 Lab results: Laboratory Results - last 24 hr 06/05/19 06/05/19 04:33 04:33 WBC 7.7 RBC 4.21 Hgb 12.3 Hct 37.3 MCV 88.6 MCH 29.2 MCHC 33.0 RDW 13.1 Plt Count 161 MPV 10.0 Neutrophils % 86.7 H Lymphocytes % 7.1 L Monocytes % 5.7 Eosinophils % 0.1 Basophils % 0.5 Neutrophils # 6.7 H Lymphocytes # 0.5 L Monocytes # 0.4 Eosinophils # 0.0 Basophils # 0.0 Sodium 139 Potassium 3.8 Chloride 105 Carbon Dioxide 25 Anion Gap 13 BUN 11 Creatinine 0.60 Estimated GFR (MDRD) Greater than 90 Glucose 128 H Calcium 8.6 Surgery Progress Note: A/P - Plan Plan: Ms. Weiss is a 44 F POD#1 following laparoscopic sleeve gastrectomy. 1. Patient currently NPO and awaiting gastrograffin study. Advance diet to clear liquids pending results. Wean IV fluids accordingly. 2. Patient currently on FUEL MANAGER pump. Wean as tolerated and transition to oral pain medications. 3. Patient ambulating on her own to restroom. Encourage continued activity with walking program. 4. Patient currently on 3 L NC. Wean oxygen as tolerated. Encourage incentive spirometry.
--- NOTE | 2019-06-05 09:33 | RAD ---
EXAM: XR UGI Single Contrast No Air PROVIDED CLINICAL HISTORY: Post gastric sleeve COMPARISON: None FINDINGS: Water-soluble contrast was performed given orally. Postoperative changes of gastric sleeve are demons trated without evidence for contrast extravasation. The initial swallow of contrast material traverses the GE junction and opacifies the duodenum. Subsequent swallows demonstrate hold up at the GE junction. IMPRESSION: 1. Post gastric sleeve without evidence for extravasation. 2. Partial holdup of contrast material as described.
[2019-06-05] MEDS: Enoxaparin Sodium 40 MG/0.4 ML SYRINGE SC SCH (09:53)
[2019-06-05] MEDS: Ondansetron PF 4 MG/2 ML Vial IVP PRN (09:53)
[2019-06-05] MEDS: Pantoprazole 40 MG VIAL IVP SCH (09:53)
[2019-06-05] MEDS: Hydrocodone-Acetamin 15 ML UDCUP PO PRN ×2 (12:50→20:27)
--- NOTE | 2019-06-05 14:08 | PRG ---
DATE OF SERVICE: 06/05/2019 SUBJECTIVE: The patient is one day status post sleeve gastrectomy. She reports that she is able to take a little bit of fluids, but not enough to go home. She says she feels full easily and gets a little nausea. OBJECTIVE: VITAL SIGNS: Temperature 97.7, pulse 56, and blood pressure 99/66. GENERAL: She is awake and alert. ABDOMEN: Soft and nondistended. The incisions are healing well. LABORATORY DATA: Her white count 7.7, hemoglobin and hematocrit of 12 and 37, platelet count 161. Electrolytes are fine. Glucose is elevated at 128. She had an upper GI that shows partial holdup at the GE junction, but no extravasation. ASSESSMENT: Postop swelling. PLAN: Probably needs to stay one more day when she is able to drink enough to stay hydrated. We will let her go home. Job ID: [id number]
[2019-06-06] MEDS: Ketorolac Tromethamine 30 MG/ML VIAL IVP SCH ×3 (00:08→11:39)
[2019-06-06] MEDS: D5 1/2 NS w/20 mEq KCL 1,000 ML IV SCH ×3 (02:39→20:09)
--- NOTE | 2019-06-06 07:30 | PDOC.GSPN ---
Surgery Progress Note: Subj - Subjective Narrative: Ms. Weiss is a 44 F POD#2 following laparascopic sleeve gastrectomy. She began a clear liquid diet yesterday with oral intake of 880 ml. She reports pain and nausea when eating. She notes some abdominal soreness. She has no difficulty voiding and has passed gas. She is ambulating on her own and walked several laps in the halls. She is breathing without difficulty on room air and has been using her IS. Surgery Progress Note: Obj - Vital signs Vital signs: Vital Signs - Most Recent Temp Pulse Resp BP Pulse Ox 97.8 F 60 18 106/72 96 06/06/19 04:00 06/06/19 04:00 06/06/19 04:00 06/06/19 04:00 06/06/19 04:00 - Physical Exam General: no distress Cardiovascular: regular rate and rhythm Respiratory: clear to auscultation Abdomen: soft, nondistended, positive bowel sounds Wound: healing well Surgery Progress Note: Results - Labs Result Diagrams: 06/05/19 04:33 06/05/19 04:33 Surgery Progress Note: A/P - Plan Plan: Ms. Weiss is a 44 F POD#2 following laparascopic sleeve gastrectomy with postop swelling. 1. Patient on clear liquid diet. Monitor oral input to determine if she is able to stay hydrated enough to go home. Wean IV fluids accordingly. Advance diet as tolerated. 2. Continue oral pain medication. 3. Encourage ambulation. 4. Encourage IS.
[2019-06-06] MEDS: Enoxaparin Sodium 40 MG/0.4 ML SYRINGE SC SCH (09:31)
[2019-06-06] MEDS: Pantoprazole 40 MG VIAL IVP SCH (09:33)
[2019-06-06] MEDS: Ondansetron PF 4 MG/2 ML Vial IVP PRN (11:39)
--- NOTE | 2019-06-06 13:26 | PRG ---
DATE OF SERVICE: 06/06/2019 SUBJECTIVE: The patient is continuing to have difficulties with oral fluids. She has tried, but then she gets nauseated and vomited. She is getting some down. OBJECTIVE: VITAL SIGNS: Temperature 97.4, pulse 48, blood pressure 94/62. GENERAL: She is awake, alert. Incisions look good. ABDOMEN: Soft, nondistended, nontender. She did have a bowel movement. ASSESSMENT: Postop swelling. PLAN: Right knee in another day of observation and IV fluid. Job ID: [id number]
[2019-06-06] MEDS: Hydrocodone-Acetamin 15 ML UDCUP PO PRN ×2 (13:35→20:51)
[2019-06-07] MEDS: D5 1/2 NS w/20 mEq KCL 1,000 ML IV SCH ×3 (02:17→12:52)
[2019-06-07] MEDS: Hydrocodone-Acetamin 15 ML UDCUP PO PRN ×3 (05:05→14:43)
--- NOTE | 2019-06-07 07:11 | PDOC.GSPN ---
Surgery Progress Note: Subj - Subjective Narrative: Ms. Weiss is a 44 F POD#3 following laparascopic sleeve gastrectomy. She is feeling better this AM. She is currently on a clear liquid diet and reports an episode of vomiting yesterday, though she was able to keep some of it down. She notes nausea and pain when eating. She describes some abdominal soreness, mainly on the left side. She has no difficulty voiding and reports having a bowel movement the other day. She is ambulating on her own. Surgery Progress Note: Obj - Vital signs Vital signs: Vital Signs - Most Recent Temp Pulse Resp BP Pulse Ox 97.5 F L 50 L 16 101/64 98 06/07/19 04:22 06/07/19 04:22 06/07/19 04:22 06/07/19 04:22 06/07/19 04:22 - Physical Exam General: no distress Cardiovascular: regular rate and rhythm Respiratory: clear to auscultation Abdomen: soft, nondistended, positive bowel sounds Wound: healing well Surgery Progress Note: Results - Labs Result Diagrams: 06/05/19 04:33 06/05/19 04:33 Surgery Progress Note: A/P - Plan Plan: Ms. Weiss is a 44 F POD#3 following laparascopic sleeve gastrectomy with postop swelling. 1. Patient remains on clear liquid diet. Monitor oral input to determine if she is able to stay hydrated. Wean IV fluids accordingly. 2. Continue oral pain medication. 3. Encourage ambulation. 4. Encourage IS.
[2019-06-07] MEDS: Enoxaparin Sodium 40 MG/0.4 ML SYRINGE SC SCH (07:52)
[2019-06-07] MEDS: Pantoprazole 40 MG VIAL IVP SCH (07:53)
[2019-06-07] MEDS: Ondansetron PF 4 MG/2 ML Vial IVP PRN (09:46)
[2019-06-07 11:34] VITALS: BP 109/58; TEMP 97.5
--- NOTE | 2019-06-08 05:13 | PQF ---
ISAIAS GIBSON JOHN A JR MD [id number] [facility] A- 330 [id number] CLINICAL DOCUMENTATION CLARIFICATION FORM: POST DISCHARGE Addendum to original discharge summary date: ____ Late entry note date: __ DATE: 06/08/2019 ATTN: Milo Ivy Please exercise your independent, professional judgment in responding to the clarification form. Clinical indicators are provided on the bottom of this form for your review Please check appropriate box(s): [ ] Abdominal swelling is a postoperative complication of Sleeve Gastrectomy [ ] Abdominal swelling is not a postoperative complication of Sleeve Gastrectomy [ ] Other diagnosis [ ] Unable to determine In addition, please specify: Present on Admission (POA): [ ] Yes [ ] No [ ] Unable to determine CLINICAL INDICATORS - SIGNS / SYMPTOMS / LABS PN p1 06/07 Dr Carolina She reports that she is able to tosha e little bit of fluids, but not enough to go home PN p1 06/07 Dr Carolina Sge says she feels full eaily and gets a little nausea General Surgery note p1 10 She notes some abdominal soreness [employer] Operative report p1 1 Morbid obesity s/p sleeve gastrectomy PN p1 06/07 -Postop Swelling TREATMENT: General Surgery note p1 10/ on clear liquid diet General Surgery note p1 10/ Monitor oral input General Surgery note p1 10 Oral pain medication (This form is maintained as a part of the permanent medical record) 2014 [employer] All Rights Reserved [email or web address] [not provided] MTDD
--- NOTE | 2019-06-08 10:38 | DIS ---
DATE OF ADMISSION: 06/04/2019 DATE OF DISCHARGE: 06/07/2019 DISCHARGE DIAGNOSIS: Morbid obesity. PROCEDURES DURING ADMISSION: Laparoscopic sleeve gastrectomy, intraoperative esophagogastroscopy, and postoperative Gastrografin swallow. HOSPITAL COURSE: The patient was admitted, taken to the operating room, where she underwent sleeve gastrectomy. Postoperatively, she had some difficulty getting enough in orally. She required 2 days of stay in order to let the swelling go down. She is now tolerating liquids well. She is discharged home on hydrocodone and Zofran. She will follow up with me in 2 weeks. Job ID: [id number]
== END 2019-06-07 15:15 | disposition home or self-care (01) | DRG 621 ==
LOC: SURG A 06-04 08:40
PROVIDERS: ADMIT Surgery; ATTEND Surgery
PROC: 0DB64Z3 Excision of Stomach, Percutaneous Endoscopic Approach, Vertical (ICD-10-PCS; principal; 2019-06-04)
PROC: 0DJ08ZZ Inspection of Upper Intestinal Tract, Via Natural or Artificial Opening Endoscopic (ICD-10-PCS; 2019-06-04)
DX: E66.01 Morbid (severe) obesity due to excess calories (principal); I10 Essential (primary) hypertension; E78.5 Hyperlipidemia, unspecified; J45.909 Unspecified asthma, uncomplicated; G40.909 Epilepsy, unspecified, not intractable, without status epilepticus; G43.909 Migraine, unspecified, not intractable, without status migrainosus; F17.200 Nicotine dependence, unspecified, uncomplicated; F31.9 Bipolar disorder, unspecified; R19.00 Intra-abdominal and pelvic swelling, mass and lump, unspecified site; Z68.44 Body mass index [BMI] 60.0-69.9, adult; Z90.710 Acquired absence of both cervix and uterus; Z79.899 Other long term (current) drug therapy; Z79.51 Long term (current) use of inhaled steroids
CPT/HCPCS: 36415; 36416; 74240; 80048; 85025; 88307; 88312; 94760; C9113; J1100; J1200; J1644; J1650; J1885; J1956; J2405; J2550; J2704; J3010; J7620; S0020

== ENCOUNTER 2019-06-11 00:31 | Emergency (ER) | payer OTHER ==
[2019-06-11 01:04] LABS: #Eosinphils 0.3 thou/uL (0.0-0.7); #Lymphocytes 1.1 thou/uL (1.20-3.40); #Monocytes 0.3 thou/uL (0.11-0.59); #Neutrophils 4.1 thou/uL (1.40-6.50); %Basophils 0.1 % (0.0-1.0); %Eosinophils 4.5 % (0.0-10.0); %Lymphocytes 18.5 % (21.0-51.0); %Monocytes 5.6 % (0.0-10.0); %Neutrophils 71.3 % (42.0-75.0); Hemoglobin 12.7 g/dL (12.0-16.0); Mean Corpuscular HGB CONC 33.1 g/dL (32.0-36.0); Mean Corpuscular Hemoglobin 29.9 pg (27.0-31.0); Mean Corpuscular Volume 90.3 fL (78.0-98.0); Mean Platelet Volume 9.5 fL (7.4-10.4); Platelet Count 140 thou/uL (130-400); RBC Distribution Width 13.5 % (11.5-14.5); Red Blood Cell (RBC) Count 4.24 mill/uL (4.20-5.40); White Blood Cell (WBC) Count 5.8 thou/uL (4.8-10.8)
[2019-06-11 01:24] LABS: BHCG - Serum Negative (NEGATIVE); Pregs Control Background? CLEAR/WHITE (CLR/WHITE); Pregs Control Bar Appear? YES (CONTROL BAR)
[2019-06-11 01:28] LABS: ALT (SGPT) 49 U/L (8-55); AST (SGOT) 37 U/L (5-34); Albumin 3.8 g/dL (3.5-5.0); Alkaline Phosphatase 88 U/L (40-110); Anion Gap 13 mmol/L (10-20); BUN (Urea Nitrogen) 10 mg/dL (7.0-18.7); Bilirubin, Total 0.3 mg/dL (0.2-1.2); Calc. Creatinine Clearance 0 mL/min (70-130); Calcium 8.9 mg/dL (7.8-10.44); Carbon Dioxide 30 mmol/L (22-29); Chloride 101 mmol/L (98-107); Estimated GFR-MDRD Greater than 90; Globulin 2.9 g/dL (2.4-3.5); Glucose 77 mg/dL (70-105); Potassium 3.8 mmol/L (3.5-5.1); Protein, Total 6.7 g/dL (6.0-8.3); Sodium 140 mmol/L (136-145)
[2019-06-11 03:03] LABS: Bilirubin Negative (Negative); Blood, Urine Negative (Negative); Clarity Clear (Clear); Glucose, Urine (Dipstick) Normal (Negative); Leukocyte Negative Leu/uL (Negative); Nitrite Negative (Negative); Protein, Urine (Dipstick) 10 mg/dL (Neg-Trace); Urobilinogen Normal mg/dL (Less than 2)
--- NOTE | 2019-06-11 08:10 | CT ---
PRELIMINARY REPORT/[facility]/EMERGENCY AFTER HOURS PROCEDURE: EXAM: CT Abdomen and Pelvis with Intravenous Contrast CLINICAL HISTORY: ER 1... 44 yo F presents for abdominal pain that started 1 day ago and has been worsening. Pt had gas tric sleeve [address] Carolina. She complains of L sided abdominal pain, 02/06. She has been ea ting fluids, passing liquid stool that is brown in color and she states appears like coffee grounds. Surgical history of section, hernia repair, hysterectomy, HERNIA MESHES X11, CERVICAL CANCER ., oophorectomy, of both ovaries. Gastric sleeve Sx (06/04/19). TECHNIQUE: Axial computed tomography images of the abdomen and pelvis with intravenous contrast. CONTRAST: With; isovue 370, IV 95ml + limited oral contrast COMPARISON: None provided. FINDINGS: LUNG BASES: No basilar airspace consolidation or pleural effusion. LIVER: Unremarkable. GALLBLADDER AND BILE DUCTS: The patient had a cholecystectomy. PANCREAS: Unremarkable. SPLEEN: There is a mild splenomegaly. ADRENAL GLANDS: Unremarkable. KIDNEYS, URETERS, AND BLADDER: Unremarkable. No hydronephrosis or nephrolithiasis. No ureteral or ladonna dder calculi. STOMACH AND BOWEL: There is evidence of a gastric surgery. No CT evidence of bowel obstruction. No bowel wall thickening. No evidence of diverticulitis. APPENDIX: No CT evidence for appendicitis. PERITONEUM: No free fluid. No free air. LYMPH NODES: No lymphadenopathy. REPRODUCTIVE: The patient had had a hysterectomy. VASCULATURE: No aortic aneurysm. BONES: No fracture or suspicious osseous abnormality. ABDOMINAL WALL AND SOFT TISSUES: There is evidence of anterior abdominal wall hernia repair. IMPRESSION: No acute intra-abdominal or pelvic abnormality. ELECTRONICALLY SIGNED BY: Samantha Parrish MD Jun 11, 2019 3:07:03 AM [employer] This report is intended for review by the ordering physician only, in accordance of law. If you recei ve this report in error, please call [facility] at [phone]. FINAL REPORT CT ABDOMEN AND PELVIS: DATE: 06/11/2019. HISTORY: Abdominal pain. FINDINGS: I agree with the preliminary report. Imaged lung bases are unremarkable. No free intraperitoneal ai r or fluid. Gastric suture line present. Cholecystectomy clips are noted. The liver, spleen, pancr eas, adrenal glands, and kidneys demonstrate no acute findings. There is prominent diastasis of the anterior abdominal wall musculature with evidence of extensive prior ventral hernia repair. There is a small fat-containing periumbilical hernia. No evidence for bowel inflammatory change or obstruction. The vascular structures of the abdomen/pel vis appear patent. No acute osseous abnormality. Bilateral L5 pars defects are present. IMPRESSION: No acute findings. POS: MENDY
[2019-06-11] MEDS ORDERED: Iopamidol-370 76% 500 ML 1 ML ONE (14:48)
[2019-06-11] MEDS ORDERED: Iopamidol 370 76% 50 ML VIAL FS ONE (14:48)
== END 2019-06-11 04:12 | disposition home or self-care (01) ==
LOC: ERS 00:31
DX: G89.18 Other acute postprocedural pain (principal); R10.12 Left upper quadrant pain; R11.0 Nausea; I10 Essential (primary) hypertension; G47.30 Sleep apnea, unspecified; E66.9 Obesity, unspecified; J45.909 Unspecified asthma, uncomplicated; F31.9 Bipolar disorder, unspecified; F41.9 Anxiety disorder, unspecified; Z79.899 Other long term (current) drug therapy
CPT/HCPCS: 36415; 74177; 80053; 81003; 84703; 85025; Q9967

== ENCOUNTER 2019-07-19 20:33 | Emergency (ER) | payer OTHER ==
[~2019-07-19 20:33] MED LIST: Iopamidol-370 76% 500 ML 1 ML ONE
[2019-07-19 21:06] LABS: #Basophils 0.1 thou/uL (0.0-0.2); #Eosinphils 0.3 thou/uL (0.0-0.7); #Lymphocytes 1.5 thou/uL (1.20-3.40); #Monocytes 0.5 thou/uL (0.11-0.59); #Neutrophils 4.3 thou/uL (1.40-6.50); %Basophils 1.2 % (0.0-1.0); %Lymphocytes 22.7 % (21.0-51.0); %Monocytes 7.4 % (0.0-10.0); %Neutrophils 64.7 % (42.0-75.0); Hemoglobin 13.7 g/dL (12.0-16.0); Mean Corpuscular Hemoglobin 28.4 pg (27.0-31.0); Mean Corpuscular Volume 88.7 fL (78.0-98.0); Mean Platelet Volume 10.6 fL (7.4-10.4); Platelet Count 146 thou/uL (130-400); Red Blood Cell (RBC) Count 4.83 mill/uL (4.20-5.40); White Blood Cell (WBC) Count 6.7 thou/uL (4.8-10.8)
[2019-07-19] MEDS ORDERED: Famotidine 20 MG TAB ONE (21:24)
[2019-07-19] MEDS ORDERED: Ondansetron PF 4 MG/2 ML Vial ONE (21:24)
[2019-07-19 21:26] LABS: ALT (SGPT) 31 U/L (8-55); AST (SGOT) 24 U/L (5-34); Albumin 4.1 g/dL (3.5-5.0); Alkaline Phosphatase 88 U/L (40-110); Anion Gap 11 mmol/L (10-20); BUN (Urea Nitrogen) 9 mg/dL (7.0-18.7); Bilirubin, Total 0.4 mg/dL (0.2-1.2); Calc. Creatinine Clearance 0 mL/min (70-130); Calcium 9.3 mg/dL (7.8-10.44); Carbon Dioxide 30 mmol/L (22-29); Chloride 104 mmol/L (98-107); Estimated GFR-MDRD Greater than 90; Globulin 3.1 g/dL (2.4-3.5); Glucose 78 mg/dL (70-105); Potassium 3.7 mmol/L (3.5-5.1); Protein, Total 7.2 g/dL (6.0-8.3); Sodium 141 mmol/L (136-145)
[2019-07-19 21:29] LABS: Bilirubin Negative (Negative); Blood, Urine Negative (Negative); Clarity Turbid (Clear); Glucose, Urine (Dipstick) Normal (Negative); Leukocyte Negative Leu/uL (Negative); Mucous/LPF 2+ LPF (<2+); Nitrite Negative (Negative); Protein, Urine (Dipstick) 30 mg/dL (Neg-Trace); RBC/HPF 0-3 HPF (0-3); Urobilinogen Normal mg/dL (Less than 2); WBC/HPF 0-3 HPF (0-3)
[2019-07-19 21:37] LABS: Bacteria/HPF 2+ HPF (None Seen); Calcium Oxalate Crystals 3+ HPF (None Seen)
[2019-07-19 21:39] LABS: BHCG - Serum Negative (NEGATIVE); Pregs Control Background? CLEAR/WHITE (CLR/WHITE); Pregs Control Bar Appear? YES (CONTROL BAR)
--- NOTE | 2019-07-19 22:20 | CT ---
CT ABDMEN AND PELVIS WITH IV CONTRAST: 07/19/19 HISTORY: Abdominal pain, vomiting. FINDINGS: Comparison is made with exam of 06/11/19. Postop changes of cholecystectomy, gastric sleeve surgery, hernia repair and probable hysterectomy a re again seen. The liver, pancreas, adrenal glands and kidneys are normal. No free air, free fluid o r lymphadenopathy is seen in the abdomen or pelvis. There is prominent diastasis of the anterior abdominal wall musculature with evidence of extensive pr ior ventral hernia repair. The small bowel loops are not abnormally dilated. There is no evidence of aneurysmal dilatation of the abdominal aorta. There are bilateral pars articularis defects. The sple en is enlarged measuring 16.5 cm. IMPRESSION: No evidence of acute process. POS: OFF
== END 2019-07-20 00:40 | disposition home or self-care (01) ==
LOC: ERS 20:33
DX: R11.10 Vomiting, unspecified (principal); R10.816 Epigastric abdominal tenderness; R10.812 Left upper quadrant abdominal tenderness; E66.9 Obesity, unspecified; E78.5 Hyperlipidemia, unspecified; E78.00 Pure hypercholesterolemia, unspecified; I10 Essential (primary) hypertension; G47.30 Sleep apnea, unspecified; J45.909 Unspecified asthma, uncomplicated; F31.9 Bipolar disorder, unspecified; F41.9 Anxiety disorder, unspecified; Z79.51 Long term (current) use of inhaled steroids; Z79.899 Other long term (current) drug therapy
CPT/HCPCS: 36415; 74177; 80053; 81003; 81015; 83690; 84703; 85025; 93005; 96361; 96374; J2405; Q9967

== ENCOUNTER 2019-08-31 19:29 | Emergency (ER) | payer OTHER ==
[2019-08-31] MEDS ORDERED: diphenhydrAMINE 50 MG/ML VIAL ONE (19:55)
[2019-08-31] MEDS ORDERED: Metoclopramide HCl 10 MG/2 ML VIAL ONE (19:55)
== END 2019-08-31 21:12 | disposition home or self-care (01) ==
LOC: ERS 19:29
DX: L01.00 Impetigo, unspecified (principal); R51 Headache; E78.5 Hyperlipidemia, unspecified; E78.00 Pure hypercholesterolemia, unspecified; I10 Essential (primary) hypertension; E66.9 Obesity, unspecified; G47.30 Sleep apnea, unspecified; J45.909 Unspecified asthma, uncomplicated; F31.9 Bipolar disorder, unspecified; F41.9 Anxiety disorder, unspecified
CPT/HCPCS: 96365; 96375; J1200; J2765

== ENCOUNTER 2020-06-03 13:26 | Outpatient (CLI) | payer OTHER ==
--- NOTE | 2020-06-03 13:57 | MMO ---
Bilateral MAMMO Bilat Screen DDI. CLINICAL HISTORY: Patient is 45 years old and is seen for screening. The patient has the following family history of breast cancer: mother, at age 32, malignant (generic), ovarian and paternal grandmother, malignant (generic). The patient has a history of cervical cancer at age 24. VIEWS: The views performed were: bilateral craniocaudal and bilateral mediolateral oblique. FILMS COMPARED: The present examination has been compared to a prior imaging study performed at [facility] on 02/06/2019. This study has been interpreted with the assistance of computer-aided detection. MAMMOGRAM FINDINGS: There are scattered fibroglandular densities. There are no suspicious masses, suspicious calcifications, or new areas of architectural distortion. IMPRESSION: THERE IS NO MAMMOGRAPHIC EVIDENCE OF MALIGNANCY. A ROUTINE FOLLOW-UP MAMMOGRAM IN 1 YEAR IS RECOMMENDED. ACR BI-RADS Category 1 - Negative MAMMOGRAPHY NOTE: 1. A negative mammogram report should not delay a biopsy if a dominant of clinically suspicious mass is present. 2. Approximately 10% to 15% of breast cancers are not detected by mammography. 3. Adenosis and dense breasts may obscure an underlying neoplasm. Reported by: ERIN ELLIOTT MD Electonically Signed: [id number]
== END 2020-06-03 13:27 | disposition home or self-care (01) ==
LOC: BICMAMMO 13:26
PROVIDERS: ATTEND Family Medicine
DX: Z12.31 Encounter for screening mammogram for malignant neoplasm of breast (principal); Z80.3 Family history of malignant neoplasm of breast; Z85.41 Personal history of malignant neoplasm of cervix uteri
CPT/HCPCS: 77067

== ENCOUNTER 2020-10-25 12:38 | Emergency (ER) | payer OTHER ==
[2020-10-25] MEDS ORDERED: HYDROcodone/Acetaminophen 10/325 mg Tablet ONE (15:49)
[2020-10-25] MEDS ORDERED: Ketorolac Tromethamine 30 MG/ML VIAL ONE ×2 (15:49→15:50)
== END 2020-10-25 16:55 | disposition home or self-care (01) ==
LOC: ERS 12:38
DX: S70.01XA Contusion of right hip, initial encounter (principal); M19.09 Primary osteoarthritis, other specified site; W01.0XXA Fall on same level from slipping, tripping and stumbling without subsequent striking against object, initial encounter; Z79.899 Other long term (current) drug therapy; E66.9 Obesity, unspecified; J45.909 Unspecified asthma, uncomplicated
CPT/HCPCS: 96372; 99283; J1885

== ENCOUNTER 2020-11-18 11:31 | Emergency (ER) | payer OTHER ==
[2020-11-18 12:35] LABS: #Eosinphils 0.3 thou/uL (0.0-0.7); #Lymphocytes 1.4 thou/uL (1.20-3.40); #Monocytes 0.4 thou/uL (0.11-0.59); %Basophils 0.5 % (0.0-1.0); %Lymphocytes 22.3 % (21.0-51.0); %Monocytes 6.4 % (0.0-10.0); %Neutrophils 65.9 % (42.0-75.0); Hemoglobin 12.9 g/dL (12.0-16.0); Mean Corpuscular HGB CONC 32.2 g/dL (32.0-36.0); Mean Corpuscular Hemoglobin 31.1 pg (27.0-31.0); Mean Corpuscular Volume 96.5 fL (78.0-98.0); Mean Platelet Volume 8.8 fL (7.4-10.4); Platelet Count 171 thou/uL (130-400); RBC Distribution Width 12.4 % (11.5-14.5); Red Blood Cell (RBC) Count 4.16 mill/uL (4.20-5.40); White Blood Cell (WBC) Count 6.1 thou/uL (4.8-10.8)
[2020-11-18 13:15] LABS: ALT (SGPT) 12 U/L (8-55); AST (SGOT) 13 U/L (5-34); Albumin 3.7 g/dL (3.5-5.0); Alkaline Phosphatase 107 U/L (40-110); Anion Gap 11 mmol/L (10-20); BUN (Urea Nitrogen) 11 mg/dL (7.0-18.7); Bilirubin, Total 0.3 mg/dL (0.2-1.2); Calc. Creatinine Clearance 0 mL/min (70-130); Calcium 8.7 mg/dL (7.8-10.44); Carbon Dioxide 29 mmol/L (22-29); Chloride 102 mmol/L (98-107); Glucose 92 mg/dL (70-105); Protein, Total 6.7 g/dL (6.0-8.3); Sodium 138 mmol/L (136-145)
[2020-11-18] MEDS ORDERED: Meclizine HCl 25 MG TAB ONE (13:42)
[2020-11-18] MEDS ORDERED: Acetaminophen 500 MG TAB ONE (14:07)
== END 2020-11-18 16:03 | disposition home or self-care (01) ==
LOC: ERS 11:31
DX: H81.399 Other peripheral vertigo, unspecified ear (principal); R07.89 Other chest pain; E66.9 Obesity, unspecified; J45.909 Unspecified asthma, uncomplicated; Z79.899 Other long term (current) drug therapy
CPT/HCPCS: 36415; 70450; 71046; 80053; 84484; 85025; 93005; 94760

== ENCOUNTER 2021-02-16 10:41 | Emergency (ER) | payer OTHER ==
[2021-02-16 11:28] LABS: #Eosinphils 0.3 thou/uL (0.0-0.7); #Lymphocytes 1.7 thou/uL (1.20-3.40); #Monocytes 0.6 thou/uL (0.11-0.59); #Neutrophils 4.5 thou/uL (1.40-6.50); %Basophils 0.4 % (0.0-1.0); %Eosinophils 3.9 % (0.0-10.0); %Monocytes 7.8 % (0.0-10.0); Mean Corpuscular HGB CONC 30.7 g/dL (32.0-36.0); Mean Corpuscular Hemoglobin 28.7 pg (27.0-31.0); Mean Corpuscular Volume 93.3 fL (78.0-98.0); Mean Platelet Volume 9.1 fL (7.4-10.4); Platelet Count 180 thou/uL (130-400); RBC Distribution Width 12.2 % (11.5-14.5); Red Blood Cell (RBC) Count 4.52 mill/uL (4.20-5.40); White Blood Cell (WBC) Count 7.1 thou/uL (4.8-10.8)
[2021-02-16 12:01] LABS: ALT (SGPT) 22 U/L (8-55); AST (SGOT) 15 U/L (5-34); Albumin 3.8 g/dL (3.5-5.0); Alkaline Phosphatase 121 U/L (40-110); Anion Gap 12 mmol/L (10-20); BUN (Urea Nitrogen) 14 mg/dL (7.0-18.7); Bilirubin, Total 0.2 mg/dL (0.2-1.2); Calc. Creatinine Clearance 0 mL/min (70-130); Calcium 8.8 mg/dL (7.8-10.44); Carbon Dioxide 29 mmol/L (22-29); Chloride 103 mmol/L (98-107); Globulin 2.9 g/dL (2.4-3.5); Glucose 98 mg/dL (70-105); Potassium 4.1 mmol/L (3.5-5.1); Protein, Total 6.7 g/dL (6.0-8.3); Sodium 140 mmol/L (136-145)
[2021-02-16] MEDS ORDERED: Iopamidol-370 76% 500 ML 1 ML ONE (12:01)
[2021-02-16] MEDS ORDERED: Ondansetron PF 4 MG/2 ML Vial ONE (14:08)
[2021-02-16 14:48] LABS: Bilirubin Negative (Negative); Blood, Urine Negative (Negative); Clarity Clear (Clear); Glucose, Urine (Dipstick) Normal (Negative); Ketone, Urine Negative (Negative); Leukocyte Negative Leu/uL (Negative); Nitrite Negative (Negative); Protein, Urine (Dipstick) Negative (Neg-Trace); Specific Gravity, Urine 1.027 (1.002-1.036); Urobilinogen Normal mg/dL (Less than 2); pH, Urine 5.5 (5.0-9.0)
[2021-02-16] MEDS ORDERED: Ibuprofen 800 MG TAB ONE (15:27)
== END 2021-02-16 15:37 | disposition home or self-care (01) ==
LOC: ERS 10:41
DX: R10.9 Unspecified abdominal pain (principal); Z79.899 Other long term (current) drug therapy; E66.01 Morbid (severe) obesity due to excess calories; J45.909 Unspecified asthma, uncomplicated; I10 Essential (primary) hypertension; F17.210 Nicotine dependence, cigarettes, uncomplicated
CPT/HCPCS: 36415; 74177; 80053; 81003; 83690; 85025; 96374; J2405; Q9967

== ENCOUNTER 2021-06-25 02:45 | Emergency (ER) | payer OTHER ==
[2021-06-25 03:45] LABS: Bilirubin Negative (Negative); Blood, Urine Negative (Negative); Clarity Clear (Clear); Glucose, Urine (Dipstick) Normal (Negative); Ketone, Urine Negative (Negative); Leukocyte Negative Leu/uL (Negative); Nitrite Negative (Negative); Protein, Urine (Dipstick) Negative (Neg-Trace); Specific Gravity, Urine 1.021 (1.002-1.036); Urobilinogen Normal mg/dL (Less than 2); pH, Urine 5.5 (5.0-9.0)
[2021-06-25 03:50] LABS: #Basophils 0.1 thou/uL (0.0-0.2); #Eosinphils 0.3 thou/uL (0.0-0.7); #Lymphocytes 1.4 thou/uL (1.20-3.40); #Monocytes 0.5 thou/uL (0.11-0.59); #Neutrophils 4.5 thou/uL (1.40-6.50); %Basophils 0.8 % (0.0-1.0); %Eosinophils 4.1 % (0.0-10.0); %Lymphocytes 21.2 % (21.0-51.0); %Monocytes 7.5 % (0.0-10.0); %Neutrophils 66.3 % (42.0-75.0); Mean Corpuscular HGB CONC 31.8 g/dL (32.0-36.0); Mean Corpuscular Hemoglobin 29.7 pg (27.0-31.0); Mean Corpuscular Volume 93.5 fL (78.0-98.0); Mean Platelet Volume 8.5 fL (7.4-10.4); Platelet Count 182 thou/uL (130-400); RBC Distribution Width 12.2 % (11.5-14.5); Red Blood Cell (RBC) Count 4.05 mill/uL (4.20-5.40); White Blood Cell (WBC) Count 6.8 thou/uL (4.8-10.8)
[2021-06-25 04:13] LABS: ALT (SGPT) 9 U/L (8-55); AST (SGOT) 10 U/L (5-34); Albumin 3.6 g/dL (3.5-5.0); Alkaline Phosphatase 74 U/L (40-110); Anion Gap 15 mmol/L (10-20); BUN (Urea Nitrogen) 16 mg/dL (7.0-18.7); Bilirubin, Total 0.3 mg/dL (0.2-1.2); Calc. Creatinine Clearance 0 mL/min (70-130); Calcium 8.8 mg/dL (7.8-10.44); Carbon Dioxide 25 mmol/L (22-29); Chloride 103 mmol/L (98-107); Glucose 96 mg/dL (70-105); Potassium 3.9 mmol/L (3.5-5.1); Protein, Total 6.6 g/dL (6.0-8.3); Sodium 139 mmol/L (136-145)
[2021-06-25] MEDS ORDERED: levETIRAcetam in NS 0 ML ONE (05:22)
[2021-06-25] MEDS ORDERED: diphenhydrAMINE 50 MG/ML VIAL ONE (05:22)
[2021-06-25] MEDS ORDERED: Ketorolac Tromethamine 30 MG/ML VIAL ONE (05:22)
[2021-06-25] MEDS ORDERED: Acetaminophen 500 MG TAB ONE (05:24)
== END 2021-06-25 05:50 | disposition home or self-care (01) ==
LOC: ERS 02:45
DX: G40.909 Epilepsy, unspecified, not intractable, without status epilepticus (principal); I10 Essential (primary) hypertension; E66.9 Obesity, unspecified; J45.909 Unspecified asthma, uncomplicated; F17.210 Nicotine dependence, cigarettes, uncomplicated
CPT/HCPCS: 36415; 80053; 80177; 81003; 85025; 93005; 99284; J1200; J1885; J1953

== ENCOUNTER 2021-11-13 16:42 | Emergency (ER) | payer MEDICAID, OTHER ==
[2021-11-13 17:25] LABS: #Eosinphils 0.2 thou/uL (0.0-0.7); #Monocytes 0.3 thou/uL (0.11-0.59); #Neutrophils 3.5 thou/uL (1.40-6.50); %Basophils 0.7 % (0.0-1.0); %Eosinophils 4.2 % (0.0-10.0); %Monocytes 6.5 % (0.0-10.0); %Neutrophils 68.6 % (42.0-75.0); Hemoglobin 11.5 g/dL (12.0-16.0); Mean Corpuscular HGB CONC 31.5 g/dL (32.0-36.0); Mean Corpuscular Hemoglobin 29.5 pg (27.0-31.0); Mean Corpuscular Volume 93.5 fL (78.0-98.0); Mean Platelet Volume 8.5 fL (7.4-10.4); Platelet Count 154 thou/uL (130-400); RBC Distribution Width 13.4 % (11.5-14.5); Red Blood Cell (RBC) Count 3.89 mill/uL (4.20-5.40); White Blood Cell (WBC) Count 5.2 thou/uL (4.8-10.8)
[2021-11-13] MEDS ORDERED: levETIRAcetam 500 MG/5 ML VIAL ONE (17:32)
[2021-11-13 17:44] LABS: ALT (SGPT) 8 U/L (8-55); AST (SGOT) 10 U/L (5-34); Albumin 3.4 g/dL (3.5-5.0); Alkaline Phosphatase 74 U/L (40-110); Anion Gap 12 mmol/L (10-20); BUN (Urea Nitrogen) 15 mg/dL (7.0-18.7); Bilirubin, Total 0.2 mg/dL (0.2-1.2); Calc. Creatinine Clearance 0 mL/min (70-130); Calcium 8.2 mg/dL (7.8-10.44); Carbon Dioxide 28 mmol/L (22-29); Chloride 107 mmol/L (98-107); Globulin 2.8 g/dL (2.4-3.5); Glucose 91 mg/dL (70-105); Potassium 4.1 mmol/L (3.5-5.1); Protein, Total 6.2 g/dL (6.0-8.3); Sodium 143 mmol/L (136-145)
[2021-11-13 17:45] LABS: Acetaminophen Less than 10.0 mcg/mL (10.0-30.0); Alcohol Less than 10 mg/dL (Less than 10); Salicylate Less than 8.0 mg/dL (15.0-30.0)
[2021-11-13 17:49] LABS: BHCG - Serum Negative (NEGATIVE); Pregs Control Background? CLEAR/WHITE (CLR/WHITE); Pregs Control Bar Appear? YES (CONTROL BAR)
[2021-11-13] MEDS ORDERED: levETIRAcetam in NS 1,500 MG in Premix Bag 1 BAG IVPB SCH (18:00)
[2021-11-13 18:22] LABS: Pregnancy Test - Urine (BHCG) Negative (Negative)
[2021-11-13 18:23] LABS: Pregu Control Background? CLEAR/WHITE (CLR/WHITE); Pregu Control Bar Appear? YES (CONTROL BAR); Specific Gravity 1.024 (1.002-1.036)
[2021-11-13 18:26] LABS: Bilirubin Negative (Negative); Blood, Urine Negative (Negative); Clarity Clear (Clear); Glucose, Urine (Dipstick) Normal (Negative); Ketone, Urine Negative (Negative); Leukocyte Negative Leu/uL (Negative); Nitrite Negative (Negative); Protein, Urine (Dipstick) Negative (Neg-Trace); Specific Gravity, Urine 1.026 (1.002-1.036); Urobilinogen Normal mg/dL (Less than 2); pH, Urine 5.5 (5.0-9.0)
[2021-11-13 18:30] LABS: Amphetamine Not Detected (NotDetected); Barbiturates Screen Not Detected (NotDetected); Benzodiazepine Screen Not Detected (NotDetected); Cocaine Metabolite Screen Not Detected (NotDetected); Methadone Not Detected (NotDetected); Methamphetamine Not Detected (NotDetected); Opiate Screen Not Detected (NotDetected); Oxycodone Screen Not Detected (NotDetected); Phencyclidine (PCP) Not Detected (NotDetected); THC/Cannabinoid Screen Not Detected (NotDetected); Tricyclic Screen Not Detected (NotDetected)
[2021-11-13] MEDS ORDERED: Ondansetron PF 4 MG/2 ML Vial ONE (19:29)
== END 2021-11-13 21:36 | disposition home or self-care (01) ==
LOC: ERS 16:42
DX: G40.909 Epilepsy, unspecified, not intractable, without status epilepticus (principal); F32.A Depression, unspecified; G47.30 Sleep apnea, unspecified; J45.909 Unspecified asthma, uncomplicated; E66.9 Obesity, unspecified; I10 Essential (primary) hypertension; F17.290 Nicotine dependence, other tobacco product, uncomplicated; Z79.899 Other long term (current) drug therapy
CPT/HCPCS: 36415; 70450; 80053; 80306; 80307; 81003; 81025; 84443; 84703; 85025; 96374; 96375; J1953; J2405

== ENCOUNTER 2024-07-08 10:27 | Emergency (ER) | payer MEDICARE, OTHER, SELFPAY ==
[2024-07-08 11:09] LABS: #Basophils Less than 0.03 10x3/uL (0.0-0.2); %Basophils 0.4 % (0.0-1.0); %Eosinophils 3.2 % (0.0-10.0); %Lymphocytes 14.1 % (21.0-51.0); %Monocytes 6.4 % (0.0-10.0); %Neutrophils 75.7 % (42.0-75.0); Hematocrit 38.4 % (36.0-47.0); Hemoglobin 11.8 g/dL (12.0-16.0); Mean Corpuscular HGB CONC 30.7 g/dL (32.0-36.0); Mean Corpuscular Hemoglobin 28.4 pg (27.0-31.0); Mean Corpuscular Volume 92.3 fL (78.0-98.0); Mean Platelet Volume 10.3 fL (7.4-10.4); Platelet Count 171 10x3/uL (130-400); Red Blood Cell (RBC) Count 4.16 mill/uL (4.20-5.40)
[2024-07-08 11:34] LABS: ALT (SGPT) 11 U/L (Less than 34); AST (SGOT) 18 U/L (11-34); Albumin 3.3 g/dL (3.1-4.5); Alkaline Phosphatase 85 U/L (40-110); Anion Gap 14 mmol/L (10-20); BUN (Urea Nitrogen) 9 mg/dL (7.0-18.7); Bilirubin, Total 0.4 mg/dL (0.3-1.2); Calc. Creatinine Clearance 0 mL/min (70-130); Calcium 8.7 mg/dL (7.8-10.44); Carbon Dioxide 28 mmol/L (22-29); Chloride 104 mmol/L (98-107); Estimated GFR 109; Globulin 3.5 g/dL (2.4-3.5); Glucose 97 mg/dL (70-105); Potassium 3.9 mmol/L (3.5-5.1); Protein, Total 6.8 g/dL (6.0-8.3); Sodium 142 mmol/L (136-145)
[2024-07-08 11:36] LABS: Troponin I Less than 0.010 ng/mL (< 0.028)
[2024-07-08] MEDS ORDERED: Ketorolac Tromethamine 30 MG (1 mL) VIAL ONE (11:37)
[2024-07-08] MEDS ORDERED: methylPREDNISolone Sod Succ/PF 125 MG/2 ML VIAL ONE (11:38)
[2024-07-08] MEDS ORDERED: Ipratropium/Albuterol 3 ML NEB ONE (11:42)
[2024-07-08] MEDS ORDERED: Azithromycin 250 MG TAB ONE (13:23)
== END 2024-07-08 13:30 | disposition home or self-care (01) ==
LOC: ERS 10:27
DX: J44.9 Chronic obstructive pulmonary disease, unspecified (principal); I10 Essential (primary) hypertension; F17.290 Nicotine dependence, other tobacco product, uncomplicated
CPT/HCPCS: 36415; 71045; 80053; 83880; 84484; 85025; 87428; 93005; 96374; 96375; J1885; J2919; J7620